=== PATIENT | female | born 1985 | race Caucasian/White ===

== ENCOUNTER 2016-12-22 03:37 | Emergency (ER) | payer OTHER | END 2016-12-22 04:47 | disposition home or self-care (01) | LOC: CED 03:37 | DX: L02.31 Cutaneous abscess of buttock (principal); F41.9 Anxiety disorder, unspecified; F32.9 Major depressive disorder, single episode, unspecified; F17.210 Nicotine dependence, cigarettes, uncomplicated; Z98.890 Other specified postprocedural states | CPT/HCPCS: 10060; 87070; 87077; 87186; 87205; 99283 ==